=== PATIENT | male | born 1985 | race Caucasian/White ===

== ENCOUNTER 2020-10-29 16:09 | Emergency (ER) | payer OTHER, SELFPAY ==
--- NOTE | ~2020-10-29 | XR_ITS ---
EXAMINATION: XR FINGER, LEFT CLINICAL INFORMATION: Left thumb pain. COMPARISON: None TECHNIQUE: 3 views of the left thumb acute. FINDINGS: There is no acute fracture or dislocation along the tip of the left thumb. There is a small bone chip seen along the metacarpophalangeal joint radial aspect. Likely old injury. The small bone chip is seen along the volar aspect of distal phalanx first digit likely small avulsion fracture. Question age. XR/XR finger LT min 2V IMPRESSION: Small bone chips anterior to the proximal phalanx first digit likely acute. Small bone chip lateral to the metacarpophalangeal joint first digit likely old injury.
[2020-10-29 16:43] VITALS: BP 116/75; PULSE 64; RESP 18; TEMP 36.1; O2SAT 99; BMI 28.3
--- NOTE | 2020-10-29 18:21 | ED.WOUNDLAC ---
HPI - Wound/Laceration General Chief Complaint: Wound/Laceration Stated Complaint: finger lac Time Seen by Provider: 10/29/20 18:21 History of Present Illness HPI narrative: 35-year-old male presents for of laceration to the top of his left thumb that occurred just prior to arrival using a. Onset (ago): hour(s) (1) Extremity Location: left: hand Place: home Patient tetanus UTD: No Context: accidental Associated symptoms: pain Related Data Previous Rx's Medication Instructions Recorded doxycycline hyclate 100 mg capsule 100 mg PO BID 10 Days #20 cap 10/29/20 Allergies Allergy/AdvReac Type Severity Reaction Status Date / Time No Known Allergies Allergy Verified 10/29/20 16:42 Review of Systems Review of Systems: Constitutional : No Weight loss, No Fever, No Chills, No Night Sweats,No Fatigue, No Malaise ENT/Mouth : No Hearing loss, No Ear Pain, No Nasal Congestion, NoSinus Pain, No Hoarseness, No sore throat, No Rhinorrhea, NoSwallowing Difficulty Eyes: No Eye Pain, No Swelling, No Redness, No Foreign Body, NoDischarge, No Vision Changes Cardiovascular : No Chest Pain, No SOB, No Dyspnea on Exertion, NoOrthopnea, No Edema, No Palpitations Respiratory : No Cough, No Sputum, No Wheezing, No Smoke Exposure, No Dyspnea Musculoskeletal : No joint pain, No Myalgias, No Joint Swelling Skin : laceration left thumb Neuro : No Weakness, No Numbness, No Paresthesias, No Loss ofConsciousness, No Dizziness, No Headache PMFSH Past Medical History Medical History (Updated 10/29/20 @ 19:45 by YLRIC Mac) Patient denies medical problems Social History Social History Advance Directives: No Advance Directives Information Provided: No Physical Exam Vital Signs: Vital Signs: Last Vital Signs Temp 97.0 F 10/29/20 16:43 Pulse 64 10/29/20 16:43 Resp 18 10/29/20 16:43 BP 116/75 10/29/20 16:43 Pulse Ox 99 10/29/20 16:43 Body Mass Index 28.3 Const: General: cooperative, no acute distress, well developed, alert and awake Nutritional Appearance: well nourished Orientation/consciousness: patient oriented x3 Limitations: no limitations Eyes: Conjunctivae: conjunctivae normal Pupils: Equal, round and reactive pupils present EOM: EOMs intact bilaterally Neck: Neck: Yes full ROM, Yes no lymphadenopathy and Yes supple Resp: Effort & Inspection: normal respiratory effort and able to speak in complete sentences Auscultation: clear to auscultation bilaterally, no crackles, no rales, no rhonchi and no wheezes Cardio: Rate: regular rate Rhythm: regular rhythm Heart sounds: S1 normal heart sound present and S2 normal heart sound present Skin: Other: Laceration to dorsum of left thumb Neuro: General: patient oriented x3, tone normal and moves all extremities Cranial nerves: Yes Equal, round and reactive pupils present Extrem: Other: Patient has mildly reduced left extensor tendon function of left thumb, he can make a thumbs up but it is not symmetrical with his right hand thumbs up. He can push against me with his left thumb against resistance to flexion, but it is not as strong as his right thumb Psych: Appearance: grossly normal Affect: normal affect Attitude: cooperative Thought process: Normal thought process present Course Course Course Narrative: Left thumb laceration sustained cutting wood with a saw. Laceration is on dorsum of left thumb. Patient has limited left extensor tendon strength. Patient can lift his thumb up but not as much as his right thumb. xr SHOWS: Small bone chips anterior to the proximal phalanx first digit likely acute. Small bone chip lateral to the metacarpophalangeal joint first digit likely old injury. Will wash out with saline, suture, splint, put on doxycycline, consult Hand surgeon Discussed plan with veto Fisher, who agreed with plan, and asked pt to call ortho to be seen on Monday Procedures Laceration Laceration 1: Side (If applicable): left Size (cm): 3 Description: linear Depth: simple, single layer Local Anesthetic: lidocaine 1% Amount of anesthesia used (mL): 3 Pre-repair: wound explored and irrigated extensively (with 1 liter NS) Size (cm): 4-0 Number of sutures: 4 Technique: simple, interrupted Discharge Plan Discharge Clinical Impression: Laceration Open fracture of left thumb Qualifiers: Encounter type: initial encounter Phalanx: distal Fracture alignment: nondisplaced Qualified Code(s): S62.525B - Nondisplaced fracture of distal phalanx of left thumb, initial encounter for open fracture Injury of extensor or abductor muscles and tendons of left thumb at forearm level Qualifiers: Encounter type: initial encounter Qualified Code(s): S56.302A - Unspecified injury of extensor or abductor muscles, fascia and tendons of left thumb at forearm level, initial encounter Patient Disposition: Home, Self-Care Instructions: Laceration (ED), Splint Care (ED) Additional Instructions: Please leave your splint on until you are seen by orthopedics. I want you to call [phone] tomorrow morning and make an appointment for Monday. They are aware that your calling, you must be seen by Monday. In 1 week get the 4 stitches out. On November 04 you must be seen for suture removal. If redness, swelling, or warmth develops around her left thumb, please return to be seen. Please fill your prescription for doxycycline and take it starting tonight. Deje la f?john puesta hasta que lo atienda un ortopedista. Quiero que llame al [phone] ma?nomi por la ma?nomi y gabriela walter dada para el . Ellos saben que kahn vocaci?n debe ser atendida antes del . En 1 semana saca los 4 puntos. El debe ser visto para que le retiren las suturas. Si se desarrolla enrojecimiento, hinchaz?n o calor alrededor de kahn pulgar wes, regrese para que lo vean. Surta kahn receta de doxiciclina y t?ebnito a partir de esta noche. ? Prescriptions: New doxycycline hyclate 100 mg capsule 100 mg PO BID 10 Days Qty: 20 RF: 0 Referrals: Kaur Johnson MD [Physician] - 2 days (left thumb extensor tendon partial injury, bone fragments) Stand Alone Forms: Work/School Release Interventions: ED Discharge Assessment Last Done: 10/29/20 20:03 Discharge Date/Time: 10/29/20 20:09 Print Language: Hungarian
[2020-10-29] MEDS: Lidocaine HCl 1 % 20 ML VIAL 10 ML INFILTRATI (18:39)
--- NOTE | 2020-10-29 20:08 | PC.NURSE ---
PT LAC TO LEFT THUMB CLEANED AND SUTURED BY LYRIC MACKEY COVERED WITH DSD AND THUMB SPICA APPLIED +CMS CHECKED BY LYRIC MACKEY.
== END 2020-10-29 20:09 | disposition home or self-care (01) ==
PROVIDERS: Emergency Provider Emergency Medicine Emergency Medical Services
DX: S61.012A Laceration without foreign body of left thumb without damage to nail, initial encounter (principal); S62.525A Nondisplaced fracture of distal phalanx of left thumb, initial encounter for closed fracture; S56.302A Unspecified injury of extensor or abductor muscles, fascia and tendons of left thumb at forearm level, initial encounter; M79.642 Pain in left hand; W26.0XXA Contact with knife, initial encounter; Y93.9 Activity, unspecified; Y92.009 Unspecified place in unspecified non-institutional (private) residence as the place of occurrence of the external cause; Y99.9 Unspecified external cause status
CPT/HCPCS: 12002; 73140; 90471; 90700; 99283; 99284

== ENCOUNTER → 2020-11-02 11:12 | Outpatient (BNVA) | payer OTHER, SELFPAY | PROVIDERS: Visit Provider Physician Assistant ==

== ENCOUNTER → 2020-11-09 09:43 | Outpatient (BNVA) | payer OTHER, SELFPAY | PROVIDERS: Visit Provider Physician Assistant ==

== ENCOUNTER 2022-02-18 23:23 | Emergency (ER) | payer OTHER, SELFPAY ==
--- NOTE | ~2022-02-18 | XR_ITS ---
EXAMINATION: XR SHOULDER, LEFT CLINICAL INFORMATION: Shoulder pain. COMPARISON: None TECHNIQUE: AP external rotation, Grashey, scapular Y, and axillary views of the left shoulder. FINDINGS: No acute fracture or malalignment. Acromioclavicular and glenohumeral joints are normal. There is a 8 mm calcification anterior to the lesser tuberosity of the proximal humerus, likely corresponding to calcific tendinitis or bursitis at the subscapularis. In . 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 XR/XR shoulder LT min 2V IMPRESSION: 1. A 8 mm calcification anterior to the lesser tuberosity of the proximal humerus, likely corresponding to calcific tendinitis or bursitis. 2. No acute osseous findings. 3. Type A os acromiale.
[2022-02-18 23:33] VITALS: BP 147/89; PULSE 84; RESP 16; TEMP 37; O2SAT 99; BMI 26.5
--- NOTE | 2022-02-18 23:57 | ED_ITS ---
HPI - Extremity Problem General Chief complaint: Extremity Injury, Upper Stated complaint: L shoulder pain Time Seen by Provider: 02/18/22 23:49 Source: patient Mode of arrival: ambulatory Limitations: no limitations History of Present Illness HPI Narrative: Patient comes in the emergency room complaining of left shoulder pain for about a week. Patient states that he did not have any kind of injury to his knowle dge, no heavy lifting. Patient states that his work is physical with repetitive movements. Patient states that yesterday he took a muscle relaxant to help with the pain, no Tylenol or ibuprofen. Patient states that tonight while he was sleeping, the pain woke him up from sleep. Related Data Previous Rx's Medication Instructions Recorded doxycycline hyclate 100 mg capsule 100 mg PO BID 10 days #20 caps 10/29/20 acetaminophen 500 mg capsule 500 mg PO Q6H PRN fever or pain 02/19/22 #20 caps ketorolac 10 mg tablet 10 mg PO BID PRN pain 5 days #7 02/19/22 tabs Allergies Allergy/AdvReac Type Severity Reaction Status Date / Time No Known Allergies Allergy Verified 11/02/20 11:21 Review of Systems Review of Systems: Constitutional : No Weight loss, No Fever, No Chills, No Night Sweats, No Fatigue, No Malaise ENT/Mouth : No Hearing loss, No Ear Pain, No Nasal Congestion, No Sinus Pain, No Hoarseness, No sore throat, No Rhinorrhea, No Swallowing Difficulty Eyes: No Eye Pain, No Swelling, No Redness, No Foreign Body, No Discharge, No Vision Changes Cardiovascular : No Chest Pain, No SOB, No Dyspnea on Exertion, No Orthopnea, No Edema, No Palpitations Respiratory : No Cough, No Sputum, No Wheezing, No Smoke Exposure, No Dyspnea Gastrointestinal : No Nausea, No Vomiting, No Diarrhea, No Constipation, No abdominal Pain, No Hematochezia, No Melena Genitourinary : no irregular bleeding, No Dysuria, No Urinary Frequency, No Hematuria, No Urinary Incontinence, No Urgency, No Flank Pain, No Urinary Flow Changes, No Hesitancy Musculoskeletal : Complaining of left shoulder pain, No Myalgias, No Joint Swelling Skin : No Skin Lesions, No rash Neuro : No Weakness, No Numbness, No Paresthesias, No Loss of Consciousness, No Dizziness, No Headache Psych : No Anxiety/Panic, No Depression, No SI/HI/AH/VH, No Social Issues, Heme/Lymph: No Bruising, No Bleeding,No Lymphadenopathy Endocrine : No Polyuria, No Polydipsia, No Temperature Intolerance PMF Past Medical History Medical History Patient denies medical problems Social History Social History (Updated 11/02/20 @ 11:31 by Maribell Vasquez CCM) Advance Directives: No Advance Directives Information Provided: No Current occupational status: employed 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 Oriented X3. No acute distress. Eyes: Pupils equal, round and reactive to light. ENT: Pharynx normal. Neck: Normal inspection. Neck supple. No lymph nodes noted. No crepitus CVS: Normal heart rate and rhythm. Pulses normal. Normal S1 and S2 Respiratory: No respiratory distress. Breath sounds normal. No Wheezing. No ral es Abdomen: Soft and nontender. No rigidity. No distention. Skin: Skin warm and dry. Normal skin color. Normal skin turgor. Extremities: No lower extremity edema patient is able to passively abduct the left arm up to 30 degrees, passively to 45. Patient states he feels an intense pinching pain with any movement. Neuro: Oriented X 3. No motor deficit. No sensory deficit. Moving all extremit ies. No slurred speech. CN 2 through 12 grossly intact Psych: calm, cooperative, normal affect Course Course Course Narrative: X-rays are pending. I discussed with the patient that it is possible that he may have rotator cough tear, aura and labrum injury. Patient will likely need an MRI. Patient was given 1 dose of IM Toradol Medical Decision Making Differential Diagnosis Differential Diagnoses: The differential diagnosis associated with the presentation includes (Bursitis, tendonitis, rotator cuff tear, arthralgia) Independent Interpretation I performed an independent interpretation of an: Plain X-Ray Interpretation: My interpretation of shoulder x-ray, no dislocation, no fracture Radiology Impression Discussion of test interpretation with radiology: I have reviewed the radiologist's reading. Radiologist Impression: FINDINGS: No acute fracture or malalignment. Acromioclavicular and glenohumeral joints are normal. There is a 8 mm calcification anterior to the lesser tuberosity of the proximal humerus, likely corresponding to calcific tendinitis or bursitis at the subscapularis. In . 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 XR/XR shoulder LT min 2V IMPRESSION: 1.? A 8 mm calcification anterior to the lesser tuberosity of the proximal humerus, likely corresponding to calcific tendinitis or bursitis. 2.? No acute osseous findings. 3.? Type A os acromiale. Discharge Plan Discharge Clinical Impression: Bursitis and tendinitis of shoulder region Patient Disposition: Home, Self-Care Instructions: Shoulder Bursitis (ED) Additional Instructions: Please follow-up with your primary care physician tomorrow. If you have any worsening or new symptoms, please return to the emergency room or call 911 Prescriptions: New ketorolac 10 mg tablet 10 mg PO BID PRN (Reason: pain) 5 Days Qty: 7 0RF Rx Instructions: Do not use ibuprofen or any other NSAIDs with his medication, only Tylenol acetaminophen 500 mg capsule 500 mg PO Q6H PRN (Reason: fever or pain) Qty: 20 0RF No Action doxycycline hyclate 100 mg capsule 100 mg PO BID 10 Days Qty: 20 0RF Referrals: Francisca Porter PA-C [Physician Preparation Plant Repairer] - 02/21/22 Stand Alone Forms: Work/School Release
[2022-02-19] MEDS: Ketorolac Tromethamine 60 MG/2 ML VIAL IM (00:32)
== END 2022-02-19 00:40 | disposition home or self-care (01) ==
PROVIDERS: Emergency Provider Emergency Medicine
DX: M75.52 Bursitis of left shoulder (principal); Z79.899 Other long term (current) drug therapy
CPT/HCPCS: 73030; 96372; 99283; 99284; J1885